=== PATIENT | male | born 1970 | race Caucasian/White ===

== ENCOUNTER 2021-02-12 19:07 | Inpatient (IN) | payer OTHER ==
[~2021-02-12] VITALS: Ht 170.2 cm; Wt 85.3 kg
[2021-02-12] MEDS ORDERED: OXYCODONE/APAP 5-325 MG TABLET PO ONE (20:00)
[2021-02-12] MEDS ORDERED: OXYCODONE/APAP 5-325 MG TABLET ONE (20:09)
--- NOTE | 2021-02-12 21:24 | NUR ---
DR SAUCEDO SPEAKING TO DR RESENDIZ.
--- NOTE | 2021-02-12 21:29 | NUR ---
DR SAUCEDO SPEAKING WITH DR THOMPSON FOR NEUROLOGY CONSULT.
[2021-02-12 22:03] LABS: BASOPHILS # (AUTO) 0.1 K/uL (0.0-8.0); BASOPHILS % (AUTO) 1.2 % (0.0-2.0); EOSINOPHILS # (AUTO) 0.1 K/uL (0.0-0.7); EOSINOPHILS % (AUTO) 1.7 % (0.0-7.0); HEMATOCRIT 45.1 % (36.7-47.1); HEMOGLOBIN 15.3 g/dL (12.5-16.3); LYMPHOCYTES % (AUTO) 44.4 % (20.5-51.5); MEAN CORPUSCULAR HEMOGLOBIN 31.3 uug (23.8-33.4); MEAN CORPUSCULAR HGB CONC 34 g/dL (32.5-36.3); MEAN CORPUSCULAR VOLUME 92.3 fL (73.0-96.2); MONOCYTES # (AUTO) 0.6 K/uL (2.0-10.0); MONOCYTES % (AUTO) 8.4 % (0.0-11.0); NEUTROPHILS % (AUTO) 44.3 % (38.5-71.5); PLATELET COUNT (AUTO) 227 K/uL (152-348); RED BLOOD CELL COUNT(AUTO) 4.89 MIL/uL (4.06-5.63); WHITE BLOOD COUNT (AUTO) 6.8 K/uL (3.6-10.2)
[2021-02-12 22:16] LABS: BILIRUBIN,DIRECT 0.5 mg/dL (0.0-0.2); BILIRUBIN,TOTAL 0.5 mg/dL (0.2-1.0); CREATININE 1.1 mg/dL (0.6-1.3); POTASSIUM 3.8 mmol/L (3.5-5.1); TOTAL PROTEIN, SERUM 6.8 g/dL (6.4-8.2)
--- NOTE | 2021-02-13 00:22 | NUR ---
Dr Poe speaking with Doug Salcedo DNP for admission.
--- NOTE | 2021-02-13 03:00 | NUR ---
Transfered to 3rd floor via wheelchair with no distress noted.
--- NOTE | 2021-02-13 03:10 | NUR ---
ADMITTED PATIENT ON TELE FLOOR UNDER THE CARE OF NYASIA BRADLEY. PATIENT ALERT ORIENTED, NO SOB NO CHEST PAIN, TELE MONITOR SINUS RHYTHM AT THIS TIME. PATIENT HAS NO COMPLAIN OF PAIN AT THIS TIME, NECK COLLAR IN PLACE. CALL LIGHT WITHIN REACH.
[2021-02-13] MEDS ORDERED: Z GUARD REMEDY PASTE 57 GM TUBE TOP PRN (03:30)
[2021-02-13] MEDS ORDERED: ACETAMINOPHEN 325 MG TABLET PO PRN (03:30)
[2021-02-13] MEDS ORDERED: ONDANSETRON 4 MG/2 ML VIAL IV PRN (03:30)
[2021-02-13] MEDS ORDERED: MORPHINE SULFATE 2 MG/1 ML DISP.SYRIN IV PRN (03:30)
[2021-02-13 03:41] VITALS: BP 115/73
[2021-02-13 04:33] VITALS: BP 121/67
--- NOTE | 2021-02-13 06:37 | NUR ---
PATIENT ASLEEP BUT AROUSABLE, NO SOB NO CHEST PAIN, NO COMPLAIN OF PAIN. PATIENT HAS NO EPISODE OF NAUSEA NO VOMITING NOTED. PATIENT TELE MONITOR SINUS RHYTHM, CONT TO MONITOR.
[2021-02-13 08:00] VITALS: BP 117/77
[2021-02-13 16:00] VITALS: BP 125/89
[2021-02-13] MEDS ORDERED: SWABABLE VALVE TRANSFER SET EA MC ONE (16:19)
[2021-02-13] MEDS ORDERED: IOHEXOL 300MG/ML 100 ML INFUS..BTL ONE (16:19)
[2021-02-13] MEDS ORDERED: IV NORMAL SALINE 250 ML IV ONE (16:19)
--- NOTE | 2021-02-13 17:13 | NUR ---
SEEN BY DR WARREN FOR CONSULT, FOLLOW-UP WITH CTA BRAIN. SAID TO CALL FOR RESULT PRIOR TO DISCHARGE. CTA BRAIN DONE STILL WAITING FOR RESULTS
--- NOTE | 2021-02-13 17:15 | NUR ---
STARTED ON MACROBID FOR UTI, CONTINUE WITH PAIN MANAGEMENT
--- NOTE | 2021-02-13 17:57 | NUR ---
RESULTS OF CTA BRAIN CALLED TO DR THOMPSON AND TALKED TO PATIENT. PER DR THOMPSON PATIENT IS SAFE TO GO HOME
--- NOTE | 2021-02-13 18:11 | NUR ---
ERIN NOTIFIED OF CTA BRAIN RESULTS AND PLAN TO DC PATIENT MINGO
--- NOTE | 2021-02-13 18:53 | NUR ---
DISCHARGED HOME STABLE ACCOMPANIED BY FRIEND. FOLLOW-UP INSTRUCTION GIVEN WITH CD.
== END 2021-02-13 19:00 | disposition home or self-care (01) | DRG 56 ==
LOC: ER 19:15 → TELE3 02-13 00:35
PROVIDERS: ADMIT Nurse Practitioner Acute Care; ATTEND Nurse Practitioner Acute Care
DX: S06.330A Contusion and laceration of cerebrum, unspecified, without loss of consciousness, initial encounter (principal); V03.00XA Pedestrian on foot injured in collision with car, pick-up truck or van in nontraffic accident, initial encounter; Y93.89 Activity, other specified; Y92.524 Gas station as the place of occurrence of the external cause; F17.210 Nicotine dependence, cigarettes, uncomplicated; R51.9 Headache, unspecified; M54.89 Other dorsalgia; R79.89 Other specified abnormal findings of blood chemistry; R90.89 Other abnormal findings on diagnostic imaging of central nervous system; R40.2362 Coma scale, best motor response, obeys commands, at arrival to emergency department; R40.2142 Coma scale, eyes open, spontaneous, at arrival to emergency department; R40.2252 Coma scale, best verbal response, oriented, at arrival to emergency department; Z20.822 Contact with and (suspected) exposure to COVID-19
CPT/HCPCS: 36415; 70030-TC; 70450; 70496; 72125; 85025; 85730; A4663; G0378; J7050; Q9967